=== PATIENT | male | born 1970 | race Caucasian/White ===

== ENCOUNTER 2016-11-28 06:02 | Emergency (ER) | payer SELFPAY ==
[2016-11-28 06:52] LABS: eGFR (African) > 60; eGFR (Non-African) > 60
[2016-11-28 07:11] VITALS: BP 114/70
--- NOTE | 2016-11-28 11:11 | ED Physician Documentation ---
General Adult - HISTORIAN Historian: patient - HPI Chief Complaint: General Adult Timing: better Further Comments: yes (Patient turned his insulin pump off to get some blood work done. When he turned it back on he get himslef a higher dose to try to get his BS back down. This AM became hypoglycemic. Alarm on pump went off and patient was not able to be aroused very well. Was given 1/2 amp of D50 and is doing much.) - ROS CONST: no problems. denies: fever, chills CVS/RESP: none GI/: none NEURO/PSYCH: denies: headache - PAST HX Past History: none. denies: hypertension Other History: diabetes Type 1 Immunizations: UTD Allergies/Adverse Reactions: Allergies Allergy/AdvReac Type Severity Reaction Status Date / Time No Known Allergies Allergy Verified 12/20/14 19:46 Home Medications: Ambulatory Orders Medication Instructions Recorded Insulin Aspart [Novolog] 0 unit SQ QID 11/02/14 - SOCIAL HX Smoking History: greater than 1 pack/day Alcohol Use: none - FAMILY HX Family History: Yes - VITAL SIGNS Vital Signs: Vital Signs Temp Pulse Resp BP Pulse Ox 122/76 12/20/14 22:34 - REVIEWED ASSESSMENTS Nursing Assessment Reviewed: Yes Vitals Reviewed: Yes Progress - Progress Progress: 06:43 Patient is doing well. General Adult Physical Exam - PHYSICAL EXAM GENERAL APPEARANCE: no distress EENT: eye inspection normal, ENT inspection normal NECK: normal inspection, supple RESPIRATORY: no resp distress, chest non-tender, breath sounds normal. No: wheezes, rales, rhonchi CVS: reg rate & rhythm, heart sounds normal, equal pulses, no murmur, no gallop ABDOMEN: soft, no organomegaly, normal bowel sounds, no abdominal bruit, no distension SKIN: warm/dry, normal color EXTREMITIES: no edema, edema NEURO: oriented X3, CN's nml as tested, mood/affect nml, cognition normal Discharge Clincal Impression: Hypoglycemia due to type 1 diabetes mellitus Referrals: Annika Gamble PRN [Primary Care Provider] - 2 Days Home Medications: Ambulatory Orders Insulin Aspart [Novolog] 0 unit SQ QID 11/02/14 Condition: Stable Disposition: 01 HOME, SELF-CARE Decision to Admit: NO Date of Decison to Admit: 11/28/16 Decision Time: 06:23
== END 2016-11-28 07:09 | disposition home or self-care (01) ==
LOC: ED 06:02
DX: E10.649 Type 1 diabetes mellitus with hypoglycemia without coma (principal)
CPT/HCPCS: 80053; 83036; 99283